=== PATIENT | male | born 1945 | race Hispanic/Latino ===

== ENCOUNTER 2022-04-06 02:20 | Emergency (ER) | payer OTHER, MEDICARE ==
[~2022-04-06] VITALS: Ht 165.1 cm; Wt 55.8 kg
[2022-04-06] MEDS ORDERED: IPRATROPIUM/ALBUTEROL SULFATE 3 ML SOLUTION IH ONE ×2 (03:30→05:00)
[2022-04-06] MEDS ORDERED: CEFTRIAXONE 1G VIAL IVP ONE (03:30)
[2022-04-06 03:32] LABS: BASOPHILS % (AUTO) 0.1 % (0.0-5.0); EOSINOPHILS % (AUTO) 0.6 % (0.0-8.0); HEMATOCRIT 34.9 % (42-54); LYMPHOCYTES % (AUTO) 17.6 % (21.0-51.0); MEAN CORPUSCULAR HEMOGLOBIN 30.3 pg (27.0-33.0); MEAN CORPUSCULAR HGB CONC 35.5 g/dL (32.0-36.0); MEAN CORPUSCULAR VOLUME 85.3 fL (79-99); NEUTROPHILS % (AUTO) 68.4 % (40.0-77.0); PLATELET COUNT (AUTO) 184 K/uL (130-400); RED BLOOD CELL COUNT(AUTO) 4.09 MIL/uL (4.50-6.20); RED CELL DISTRIBUTION WIDTH 12.2 % (11.0-15.5); WHITE BLOOD COUNT (AUTO) 6.8 K/uL (4.8-10.8)
[2022-04-06 03:42] LABS: POTASSIUM 4.1 mmol/L (3.5-5.1)
[2022-04-06 03:47] LABS: ALBUMIN 3.5 g/dL (3.5-5.0); TOTAL PROTEIN, SERUM 7.9 g/dL (6.0-8.3)
[2022-04-06] MEDS ORDERED: SOLU-MEDROL 125MG VIAL IVP ONE (05:00)
[2022-04-06 05:13] VITALS: BP 156/72
[2022-04-06] MEDS ORDERED: AZIT500T PO (05:43)
[2022-04-06] MEDS ORDERED: METH4TAB3 PO (05:43)
== END 2022-04-06 06:04 | disposition home or self-care (01) ==
LOC: EDH 02:20
DX: J32.9 Chronic sinusitis, unspecified (principal); J40 Bronchitis, not specified as acute or chronic; E11.9 Type 2 diabetes mellitus without complications; I10 Essential (primary) hypertension; E78.00 Pure hypercholesterolemia, unspecified; Z20.822 Contact with and (suspected) exposure to COVID-19
CPT/HCPCS: 99284; 84484; 80053; 85025; 87804 ×2; 36415; 87635; 71045; 96374; 96375; 94640; C9803; J2930; J0696